=== PATIENT | female | born 1995 | race Caucasian/White ===

== ENCOUNTER 2021-09-10 17:30 | Inpatient (IN) | payer OTHER, SELFPAY ==
[~2021-09-10] VITALS: Ht 162.6 cm; Wt 79.8 kg
[2021-09-10] MEDS ORDERED: PNV91TAB8 PO (18:08)
[2021-09-10] MEDS ORDERED: MORPHINE SULFATE 5 MG/ML VIAL IVP PRN (18:10)
[2021-09-10] MEDS ORDERED: OXYTOCIN 20 UNITS in LACTATED RINGERS 1,000 ML IV SCH (18:10)
[2021-09-10 19:13] LABS: BASOPHILS % (AUTO) 0.3 % (0.0-2.0); EOSINOPHILS % (AUTO) 0.3 % (0.0-4.0); HEMATOCRIT 33.3 % (36-48); HEMOGLOBIN 11.2 g/dL (12.0-16.0); LYMPHOCYTES # (AUTO) 1.9 K/uL (2.5-16.5); LYMPHOCYTES % (AUTO) 17.6 % (20.5-51.1); MEAN CORPUSCULAR HEMOGLOBIN 30 pg (27-31); MEAN CORPUSCULAR HGB CONC 34 g/dL (33-37); MEAN CORPUSCULAR VOLUME 90.4 fL (80-94); MONOCYTES # (AUTO) 0.7 K/uL (0.8-1.0); MONOCYTES % (AUTO) 6.9 % (1.7-9.3); NEUTROPHILS # (AUTO) 7.9 K/uL (1.8-7.7); NEUTROPHILS % (AUTO) 74.9 % (42.2-75.2); PLATELET COUNT (AUTO) 221 K/uL (140-450); RED BLOOD CELL COUNT(AUTO) 3.68 MIL/uL (4.20-5.40); RED CELL DISTRIBUTION WIDTH 14.6 % (11.6-13.7); WHITE BLOOD COUNT (AUTO) 10.6 K/uL (4.8-10.8)
[2021-09-10 19:21] LABS: BILIRUBIN,URINE NEGATIVE (NEGATIVE); BLOOD, URINE NEGATIVE (NEGATIVE); COLOR,URINE YELLOW (YELLOW); LEUKOCYTE ESTERASE ,URINE 1+ (NEGATIVE); NITRITE, URINE NEGATIVE (NEGATIVE); PH,URINE 6.5 (5.0-9.0); UGLUCOSE NEGATIVE (NEGATIVE)
[2021-09-10 19:23] LABS: APPEARANCE,URINE HAZY (CLEAR)
[2021-09-10 19:30] LABS: ALBUMIN 2.7 g/dL (3.4-5.0); ANION GAP 15.1 (8-16); CARBON DIOXIDE 22.6 mmol/L (21-32); CREATININE 0.6 mg/dL (0.6-1.3); POTASSIUM 3.7 mmol/L (3.5-5.1); TOTAL BILIRUBIN 0.2 mg/dL (0.0-1.0)
[2021-09-10 19:40] LABS: RBC,URINE NONE SEEN /HPF (0-5)
[2021-09-10] MEDS: LACTATED RINGERS 1,000 ML IV SCH (19:44)
[2021-09-10] MEDS ORDERED: MISOPROSTOL 25 MCG TAB ONE (20:00)
[2021-09-10 20:41] VITALS: BP 122/61
[2021-09-11] MEDS ORDERED: MISOPROSTOL 25 MCG TAB VG SCH
[2021-09-11] MEDS ORDERED: MORPHINE SULFATE 10 MG/ML VIAL ONE ×3 (03:46→20:10)
[2021-09-11] MEDS: LACTATED RINGERS 1,000 ML IV SCH ×4 (03:53→20:03)
[2021-09-11] MEDS: ONDANSETRON 4 MG/2 ML VIAL IVP PRN ×4 (03:59→20:23)
[2021-09-11] MEDS: MORPHINE SULFATE 2 MG/ML SYR IVP PRN ×3 (04:00→20:23)
[2021-09-11] MEDS ORDERED: ROPIVACAINE 0.2%/NS PREMIX 200 ML EPI ONE (07:32)
--- NOTE | 2021-09-11 08:53 | NUR ---
PATIENT HAS BEEN SCREENED AND CATEGORIZED LOW NUTRITION RISK. PATIENT WILL BE SEEN WITHIN 7 DAYS OF ADMISSION. 09/17/[address]
[2021-09-11] MEDS ORDERED: OXYTOCIN 20 UNITS/LR PREMIX 1,000 ML IV ONE (09:27)
[2021-09-11] MEDS ORDERED: ACETAMINOPHEN 325 MG TAB PO PRN (18:25)
[2021-09-11] MEDS ORDERED: LIDOCAINE 1% 500 MG/50 ML VIAL ONE (19:33)
[2021-09-12] MEDS ORDERED: NALBUPHINE 10 MG/ML AMP ONE (00:12)
[2021-09-12] MEDS ORDERED: PROMETHAZINE 25 MG/ML VIAL ONE (00:12)
[2021-09-12] MEDS ORDERED: OXYTOCIN 10 UNITS/ML VIAL IM PRN (00:30)
[2021-09-12] MEDS ORDERED: BENZOCAINE/MENTHOL 20%-0.5% 60 GM CAN TP PRN (00:30)
[2021-09-12] MEDS ORDERED: TEMAZEPAM 15 MG CAP PO PRN ×2 (00:30)
[2021-09-12] MEDS ORDERED: bisacodyL 10 MG SUPP RC PRN (00:30)
[2021-09-12] MEDS ORDERED: METHYLERGONOVINE 0.2 MG TAB PO PRN (00:30)
[2021-09-12] MEDS ORDERED: METHYLERGONOVINE 0.2 MG/ML AMP IM PRN (00:30)
[2021-09-12] MEDS ORDERED: SODIUM PHOSPHATE 118 ML ENEM RC PRN (00:30)
[2021-09-12] MEDS ORDERED: MEASLES, MUMPS, AND RUBELLA 1 VIAL SQVAC ONE ×2 (00:30→21:27)
[2021-09-12] MEDS ORDERED: METHYLERGONOVINE 0.2 MG/ML AMP ONE (01:29)
[2021-09-12] MEDS: oxyCODONE/APAP 5/325 MG 1 TAB TAB PO PRN ×2 (04:43→08:54)
[2021-09-12] MEDS: LACTATED RINGERS 1,000 ML IV SCH (04:50)
[2021-09-12] MEDS: HYDROcodone/APAP 5/325 MG 1 TAB TAB PO PRN ×2 (12:53→16:59)
[2021-09-12] MEDS ORDERED: bisacodyL 5 MG TABEC PO SCH (21:00)
[2021-09-12] MEDS ORDERED: SENNA 8.6 MG TAB PO SCH (21:00)
[2021-09-12] MEDS ORDERED: DOCUSATE SOD/SENNA 50/8.6 MG 1 TAB PO SCH (21:00)
[2021-09-13 01:18] LABS: HEMATOCRIT 23.7 % (36-48); HEMOGLOBIN 7.9 g/dL (12.0-16.0)
[2021-09-13] MEDS: oxyCODONE/APAP 5/325 MG 1 TAB TAB PO PRN ×2 (07:24→15:31)
[2021-09-13] MEDS ORDERED: FERROUS SULFATE 325 MG TABEC PO SCH (10:00)
[2021-09-13] MEDS ORDERED: DOCUSATE SOD/SENNA 50/8.6 MG 1 TAB PO SCH (21:00)
== END 2021-09-13 18:30 | disposition home or self-care (01) | DRG 807 ==
LOC: MFCC 17:30 → OBSVTOIN 19:57 → MFCC 09-12 03:37
PROVIDERS: ADMIT Obstetrics & Gynecology; ATTEND Obstetrics & Gynecology
PROC: 10E0XZZ Delivery of Products of Conception, External Approach (ICD-10-PCS; principal; 2021-09-10)
PROC: 10907ZC Drainage of Amniotic Fluid, Therapeutic from Products of Conception, Via Natural or Artificial Opening (ICD-10-PCS; 2021-09-10)
PROC: 0HQ9XZZ Repair Perineum Skin, External Approach (ICD-10-PCS; 2021-09-10)
PROC: 3E0R3BZ Introduction of Anesthetic Agent into Spinal Canal, Percutaneous Approach (ICD-10-PCS; 2021-09-10)
PROC: 00HU33Z Insertion of Infusion Device into Spinal Canal, Percutaneous Approach (ICD-10-PCS; 2021-09-10)
PROC: 3E033VJ Introduction of Other Hormone into Peripheral Vein, Percutaneous Approach (ICD-10-PCS; 2021-09-10)
PROC: 3E0P7VZ Introduction of Hormone into Female Reproductive, Via Natural or Artificial Opening (ICD-10-PCS; 2021-09-10)
DX: O36.8130 Decreased fetal movements, third trimester, not applicable or unspecified (principal); Z37.0 Single live birth; O70.0 First degree perineal laceration during delivery; O69.81X0 Labor and delivery complicated by cord around neck, without compression, not applicable or unspecified; Z20.822 Contact with and (suspected) exposure to COVID-19; Z3A.40 40 weeks gestation of pregnancy; O90.81 Anemia of the puerperium
CPT/HCPCS: 36415; 51702; 59200; 59409; 76815; 80053; 81001; 85018; 85025; 86592; 86886; 86900; 86901; 87086; 90707; C1758; G0378; J2001; J2210; J2270; J2300; J2405; J2550; J2590; J2795; Q0092

== ENCOUNTER 2023-07-25 19:37 | Inpatient (IN) | payer OTHER ==
[~2023-07-25] VITALS: Ht 162.6 cm; Wt 73.5 kg
[~2023-07-25 19:37] MED LIST: PNV91TAB8 PO
[2023-07-25] MEDS ORDERED: MORPHINE SULFATE 10 MG/ML VIAL IVP PRN (20:00)
[2023-07-25] MEDS ORDERED: ONDANSETRON 4 MG/2 ML VIAL IVP PRN (20:00)
[2023-07-25] MEDS ORDERED: CARBOPROST 250 MCG/ML AMP IM PRN (20:00)
[2023-07-25] MEDS ORDERED: METHYLERGONOVINE 0.2 MG/ML AMP IM PRN (20:00)
[2023-07-25] MEDS: LACTATED RINGERS 1,000 ML IV SCH ×2 (20:46→22:42)
[2023-07-25 21:16] LABS: BASOPHILS % (AUTO) 0.3 % (0.0-2.0); EOSINOPHILS % (AUTO) 0.4 % (0.0-4.0); HEMATOCRIT 33.5 % (36-48); LYMPHOCYTES # (AUTO) 2.5 K/uL (2.5-16.5); MEAN CORPUSCULAR HEMOGLOBIN 29 pg (27-31); MEAN CORPUSCULAR HGB CONC 33 g/dL (33-37); MEAN CORPUSCULAR VOLUME 86.7 fL (80-94); MONOCYTES # (AUTO) 0.8 K/uL (0.8-1.0); MONOCYTES % (AUTO) 8.4 % (1.7-9.3); NEUTROPHILS # (AUTO) 6.5 K/uL (1.8-7.7); NEUTROPHILS % (AUTO) 65.9 % (42.2-75.2); PLATELET COUNT (AUTO) 221 K/uL (140-450); RED BLOOD CELL COUNT(AUTO) 3.86 MIL/uL (4.20-5.40); RED CELL DISTRIBUTION WIDTH 14.6 % (11.6-13.7); WHITE BLOOD COUNT (AUTO) 9.8 K/uL (4.8-10.8)
[2023-07-25 21:21] LABS: APPEARANCE,URINE CLEAR (CLEAR); BILIRUBIN,URINE NEGATIVE (NEGATIVE); BLOOD, URINE NEGATIVE (NEGATIVE); COLOR,URINE YELLOW (YELLOW); LEUKOCYTE ESTERASE ,URINE NEGATIVE (NEGATIVE); NITRITE, URINE NEGATIVE (NEGATIVE); PH,URINE 6.5 (5.0-9.0); PROTEIN,URINE NEGATIVE (NEGATIVE); UGLUCOSE NEGATIVE (NEGATIVE); UROBILINOGEN,URINE 0.2 EU/dL (0.2 - 1)
[2023-07-25 21:24] VITALS: BP 113/55; PULSE 90; RESP 18; TEMP 98.4
[2023-07-25 21:39] LABS: COVID19 ANTIGEN SOFIA FIA NEGATIVE (NEGATIVE)
[2023-07-25 21:40] LABS: INR 0.87 (0.8-1.2); PARTIAL THROMBOPLASTIN TIME 25.6 secs (22-35.6); PROTHROMBIN TIME 9.2 secs (10.8-13.4)
[2023-07-25 21:41] LABS: ALBUMIN 2.7 g/dL (3.4-5.0); ANION GAP 16.3 (8-16); CALCIUM 8.5 mg/dL (8.5-10.1); CARBON DIOXIDE 21.4 mmol/L (21-32); CREATININE 0.6 mg/dL (0.6-1.3); HIV RAPID SCREEN NON-REACTIVE (NON REACTIV); POTASSIUM 3.7 mmol/L (3.5-5.1); TOTAL BILIRUBIN 0.3 mg/dL (0.0-1.0); TOTAL PROTEIN, SERUM 6.8 g/dL (6.4-8.2)
[2023-07-25] MEDS ORDERED: fentaNYL citrate 0.05 MG/ML VIAL ONE (23:07)
[2023-07-25] MEDS ORDERED: ROPIVACAINE 0.2%/NS PREMIX 200 ML EPI ONE (23:07)
[2023-07-25] MEDS ORDERED: OXYTOCIN 20 UNITS/LR PREMIX 1,000 ML IV ONE (23:57)
[2023-07-26] MEDS: OXYTOCIN 20 UNITS in LACTATED RINGERS 1,000 ML IV SCH ×2 (00:06→12:15)
[2023-07-26] MEDS: LACTATED RINGERS 1,000 ML IV SCH ×2 (01:50→09:43)
[2023-07-26] MEDS ORDERED: ROPIVACAINE 0.2%/NS PREMIX 200 ML EPI ONE (12:22)
[2023-07-26] MEDS ORDERED: BENZOCAINE/MENTHOL 20%-0.5% 60 GM CAN TP PRN (14:55)
[2023-07-26] MEDS ORDERED: OXYTOCIN 10 UNITS/ML VIAL IM PRN (14:55)
[2023-07-26] MEDS ORDERED: MEASLES, MUMPS, AND RUBELLA 1 VIAL SQVAC ONE (14:55)
[2023-07-26] MEDS ORDERED: METHYLERGONOVINE 0.2 MG/ML AMP IM PRN (14:55)
[2023-07-26] MEDS ORDERED: METHYLERGONOVINE 0.2 MG TAB PO PRN (14:55)
[2023-07-26] MEDS: IBUPROFEN 800 MG TAB PO PRN ×2 (16:55→22:53)
[2023-07-27 05:37] LABS: HEMOGLOBIN 10.1 g/dL (12.0-16.0)
[2023-07-27] MEDS: IBUPROFEN 800 MG TAB PO PRN (12:16)
== END 2023-07-27 20:26 | disposition home or self-care (01) | DRG 560 ==
LOC: MLD 19:37 → MFCC 07-26 16:00
PROVIDERS: ADMIT Obstetrics & Gynecology; ATTEND Obstetrics & Gynecology
PROC: 10E0XZZ Delivery of Products of Conception, External Approach (ICD-10-PCS; principal; 2023-07-26)
PROC: 10907ZC Drainage of Amniotic Fluid, Therapeutic from Products of Conception, Via Natural or Artificial Opening (ICD-10-PCS; 2023-07-26)
PROC: 3E033VJ Introduction of Other Hormone into Peripheral Vein, Percutaneous Approach (ICD-10-PCS; 2023-07-26)
PROC: 3E0R3BZ Introduction of Anesthetic Agent into Spinal Canal, Percutaneous Approach (ICD-10-PCS; 2023-07-26)
PROC: 00HU33Z Insertion of Infusion Device into Spinal Canal, Percutaneous Approach (ICD-10-PCS; 2023-07-26)
DX: O80 Encounter for full-term uncomplicated delivery (principal); Z37.0 Single live birth; Z20.822 Contact with and (suspected) exposure to COVID-19; Z3A.39 39 weeks gestation of pregnancy
CPT/HCPCS: 36415; 51702; 59409; 76815; 80053; 81003; 85018; 85025; 85610; 85730; 86592; 86762; 86886; 86900; 86901; 87340; J2405; J2590; J2795; J3010; J7120